=== PATIENT | female | born 1990 | race African-American/Black ===

== ENCOUNTER 2018-05-07 17:33 | Emergency (ER) | payer SELFPAY ==
[~2018-05-07] VITALS: Ht 162.6 cm; Wt 90.7 kg
[2018-05-07 17:40] VITALS: BP 139/87
[2018-05-07] MEDS ORDERED: DIPHTH,PERTUSS(ACELL),TET TOX 0.5 ML DISP.SYRIN. VAX IM ONE (17:45)
[2018-05-07] MEDS ORDERED: NEOMY/BACITR/POLYMYXIN OINT PACKET. TP ONE (17:45)
[2018-05-07] MEDS ORDERED: NAPROXEN 500 MG TABLET PO STA (17:50)
[2018-05-07] MEDS ORDERED: MUPI22OI2 TP (17:57)
--- NOTE | 2018-05-07 17:58 | PHYS DOC ---
Adult General Chief Complaint Chief Complaint: LACERATION/AVULSION HPI HPI Patient is a 27 year old female who presents to the emergency room with complaints of a puncture wound to the palmar aspect of her left hand after accidentally stabbing herself with a thermometer at work last night. Pt denies any numbness or tingling. States that the area bled after injury but denies any drainage or bleeding today. She is unsure of her last tetanus immunization. Currently she rates her discomfort as a 7 out of 10 on the pain scale. Review of Systems Review of Systems Constitutional: Denies fever or chills [] Musculoskeletal: Denies back pain or joint pain [] Integument: Denies rash, reports puncture wound with mild erythema to left palm Neurologic: Denies headache, focal weakness or sensory changes [] All other systems were reviewed and found to be within normal limits, except as documented in this note. Current Medications Current Medications Current Medications Medications (Trade) Dose Ordered Sig/Baldomero Start Time Stop Time Status Last Admin Dose Admin Diphtheria/ Tetanus/Acell Pertussis (Boostrix) 0.5 ml ONCE ONCE 05/07/18 17:45 05/07/18 17:46 UNV Neomycin/ Polymyxin/ Bacitracin (Triple Antibiotic Ointment) 1 pkt 1X ONCE 05/07/18 17:45 05/07/18 17:46 UNV Physical Exam Physical Exam Constitutional: Well developed, well nourished, no acute distress, non-toxic appearance. [] HENT: Normocephalic, atraumatic, bilateral external ears normal, oropharynx moist, no oral exudates, nose normal. [] Eyes: PERRLA, conjunctiva normal, no discharge. [] Skin: Warm, dry; small puncture wound noted to left palm, no active bleeding or drainage, scant amount of surrounding erythema Extremities: No tenderness, no cyanosis, no clubbing, ROM intact, no edema. [] Neurologic: Alert and oriented X 3, normal motor function, normal sensory function, no focal deficits noted. [] Psychologic: Affect normal, judgement normal, mood normal. [] EKG EKG [] Radiology/Procedures Radiology/Procedures [] Course & Med Decision Making Course & Med Decision Making Pertinent Labs and Imaging studies reviewed. (See chart for details) Dx: puncture wound of left palm Pt was given a naproxen in the ER for pain. A Tdap was administered, and the nurse cleansed the site and applied antibiotic ointment and a bandage over site. Rx for mupirocin written. Encouraged pt to soak affected hand in warm soapy soaks TID and as needed and to fill rx and apply ointment and bandage to area TID. Patient verbalized an understanding of home care, medications, follow- up, and return to ED instructions and was in agreement with the plan of care. [] Dragon Disclaimer Dragon Disclaimer This electronic medical record was generated, in whole or in part, using a voice recognition dictation system. Departure Departure Impression: Primary Impression: Puncture wound of left palm without complication Disposition: HOME, SELF-CARE Condition: STABLE Patient Instructions: Puncture Wound, [id number] Additional Instructions: Fill prescription and use as directed. May take tylenol or ibuprofen as needed for pain. Soak the affected hand in warm soapy soaks three times a day, apply antibiotic ointment and a bandaid after soaks. Follow up with PCP this week, return to the ER if symptoms worsen. Scripts Mupirocin (MUPIROCIN OINTMENT) 22 Gm Oint...g. 1 DELANO TP TID for WOUND CARE, #1 TUBE Prov: KINA BARROS APRN 05/07/18 Problem Qualifiers Primary Impression: Puncture wound of left palm without complication Encounter type: initial encounter Qualified Codes: S61.432A - Puncture wound without foreign body of left hand, initial encounter KINA BARROS APRN May 07, 2018 17:58
== END 2018-05-07 18:25 | disposition home or self-care (01) ==
LOC: ER 17:33
DX: S61.432A Puncture wound without foreign body of left hand, initial encounter (principal); W45.8XXA Other foreign body or object entering through skin, initial encounter; Y93.89 Activity, other specified; Y92.89 Other specified places as the place of occurrence of the external cause; Y99.8 Other external cause status
CPT/HCPCS: 90471; 90715; 99283